=== PATIENT | male | born 1985 | race Caucasian/White ===

== ENCOUNTER → 2024-02-06 14:00 | Outpatient (REF) | payer BC, SELFPAY | LOC: PAVMRI 14:00 | PROVIDERS: ATTENDING PHYSICIAN Family Medicine | DX: M25.531 Pain in right wrist (principal) | CPT/HCPCS: 73221 ==

== ENCOUNTER 2024-05-26 06:17 | Day surgery (SDC) | payer BC, SELFPAY ==
[2024-05-26 10:55] VITALS: BMI 24.3
[2024-05-26 10:57] VITALS: BMI 24.3
[2024-05-26 11:01] VITALS: BP 123/81
[2024-05-26] MEDS: CELEBREX 200 MG PO (11:16)
[2024-05-26] MEDS: TYLENOL 1000 MG PO (11:16)
[2024-05-26] MEDS: NORMOSOL-R 1000 IV (11:17)
[2024-05-26 14:20] VITALS: BP 123/81
[2024-05-26 15:05] VITALS: BP 113/69
[2024-05-26 15:06] VITALS: BP 113/69
[2024-05-26 15:35] VITALS: BP 106/63
[2024-05-26 16:05] VITALS: BP 109/72
== END 2024-05-26 16:05 | disposition home or self-care (01) ==
LOC: SDS 06:17
PROVIDERS: ATTENDING PHYSICIAN Orthopaedic Surgery
DX: M67.431 Ganglion, right wrist (principal)
CPT/HCPCS: 25111; 88304

== ENCOUNTER → 2025-09-30 10:13 | Outpatient (REF) | payer BC, SELFPAY ==
[2025-09-30 11:20] LABS: Hematocrit 44.6 % (39.0-52.0); Hemoglobin 15.0 g/dL (13.0-18.0); Mean Corp Hgb Conc. 33.6 g/dL (33.0-37.0); Mean Corpuscular Volume 88.3 fL (80.0-94.0); Nucleated Red Blood Cells % 0 % (-); Platelet Count 237 10^3/uL (130-400); Red Cell Dist. Width 12.5 % (11.5-14.5)
[2025-09-30 12:26] LABS: ALT (SGPT) 22 U/L (0-50); AST (SGOT) 21 U/L (17-59); Albumin 5.3 g/dl (3.5-5.0); Alkaline Phosphatase 57 U/L (38-126); Blood Urea Nitrogen 17 mg/dl (9-20); Calcium 9.7 mg/dl (8.4-10.2); Carbon Dioxide 30 mmol/L (22-30); Chloride 101 mmol/L (98-107); Glucose 105 mg/dl (70-99); HDL Cholesterol 55 mg/dl; LDL Cholesterol, Calculated 108 mg/dl; Potassium 4.5 mmol/L (3.5-5.1); Sodium 140 mmol/L (135-145); Total Protein 8.1 g/dl (6.3-8.2); Very Low Density Lipoprotein 14 mg/dl (0-30); eGFR > 60.00
[2025-09-30 12:52] LABS: PSA, Total - Screen 0.75 ng/ml (0.0-4.0)
== END ==
LOC: REG 10:13
PROVIDERS: ATTENDING PHYSICIAN Family Medicine
DX: Z00.00 Encounter for general adult medical examination without abnormal findings (principal); Z80.42 Family history of malignant neoplasm of prostate; I10 Essential (primary) hypertension
CPT/HCPCS: 36415; 80053; 80061; 84443; 85025; G0103